=== PATIENT | female | born 1965 | race Two or more races ===

== ENCOUNTER 2019-03-23 12:49 | Outpatient (CLI) | payer OTHER | END 2019-03-23 12:56 | disposition home or self-care (01) | LOC: RAD 12:49 | DX: M17.0 Bilateral primary osteoarthritis of knee (principal); M25.561 Pain in right knee; M25.562 Pain in left knee; M25.511 Pain in right shoulder ==

== ENCOUNTER 2019-04-06 10:26 | Outpatient (CLI) | payer OTHER | END 2019-04-06 10:38 | disposition home or self-care (01) | LOC: SONOGRAMA 10:26 | DX: E04.1 Nontoxic single thyroid nodule (principal) ==

== ENCOUNTER 2020-03-01 10:32 | Outpatient (CLI) | payer OTHER | END 2020-03-01 10:42 | disposition home or self-care (01) | LOC: SONOGRAMA 10:32 | PROVIDERS: ATTEND Internal Medicine | DX: E04.1 Nontoxic single thyroid nodule (principal) ==

== ENCOUNTER 2020-04-04 11:25 | Outpatient (CLI) | payer OTHER | END 2020-04-04 11:33 | disposition home or self-care (01) | LOC: SONOGRAMA 11:25 | PROVIDERS: ATTEND Pathology Anatomic Pathology & Clinical Pathology | DX: E04.2 Nontoxic multinodular goiter (principal) ==

== ENCOUNTER 2021-10-21 12:32 | Outpatient (CLI) | payer OTHER | END 2021-10-21 15:53 | disposition home or self-care (01) | LOC: RAD 12:32 | PROVIDERS: ATTEND Orthopaedic Surgery | DX: Z01.818 Encounter for other preprocedural examination (principal); R07.9 Chest pain, unspecified ==

== ENCOUNTER 2022-03-23 12:01 | Outpatient (CLI) | payer OTHER | END 2022-03-23 12:08 | disposition home or self-care (01) | LOC: MAMO-SONO 12:01 | DX: Z12.31 Encounter for screening mammogram for malignant neoplasm of breast (principal); N64.4 Mastodynia; E04.0 Nontoxic diffuse goiter ==

== ENCOUNTER 2023-04-01 11:34 | Outpatient (CLI) | payer OTHER | END 2023-04-01 11:42 | disposition home or self-care (01) | LOC: MAMO-SONO 11:34 | DX: Z12.31 Encounter for screening mammogram for malignant neoplasm of breast (principal); N63.0 Unspecified lump in unspecified breast ==

== ENCOUNTER 2023-09-27 12:14 | Outpatient (CLI) | payer OTHER | END 2023-09-27 12:18 | disposition home or self-care (01) | LOC: SONOGRAMA 12:14 | DX: E04.1 Nontoxic single thyroid nodule (principal) ==

== ENCOUNTER 2023-10-14 13:01 | Outpatient (CLI) | payer OTHER | END 2023-10-14 13:03 | disposition home or self-care (01) | LOC: SONOGRAMA 13:01 | PROVIDERS: ATTEND Pathology Anatomic Pathology & Clinical Pathology | DX: D34 Benign neoplasm of thyroid gland (principal); E07.89 Other specified disorders of thyroid; D44.0 Neoplasm of uncertain behavior of thyroid gland; E04.1 Nontoxic single thyroid nodule ==